=== PATIENT | female | born 1995 | race American Indian/Alaskan Native ===

== ENCOUNTER 2018-04-03 22:22 | Inpatient (IN) | payer MEDICAID ==
[2018-04-03] MEDS ORDERED: LACTATED RINGERS 1,000 ML IV ONE ×2 (22:33→23:25)
[2018-04-03 23:01] LABS: Bacteria,Urine 2+ /HPF (Negative); Bilirubin,Urine NEG (Negative); Blood,Urine SM (Negative); Color,Urine Amber (Yellow)
[2018-04-03 23:10] LABS: WBC,Urine > 182.0 /HPF (0.0-6.0)
[2018-04-03 23:16] LABS: Amphetamine Screen,Urine PRESUMPTIVE NEGATIVE; Benzodiazepines Screen,Urine PRESUMPTIVE NEGATIVE; Cannabinoid Screen,Urine PRESUMPTIVE NEGATIVE; Cocaine Screen,Urine PRESUMPTIVE NEGATIVE; Methadone Screen,Urine PRESUMPTIVE NEGATIVE; Opiate Screen,Urine PRESUMPTIVE NEGATIVE
[2018-04-03] MEDS ORDERED: TYLENOL PO PRN (23:45)
[2018-04-03] MEDS ORDERED: COLACE PO PRN (23:45)
[2018-04-03] MEDS ORDERED: DEEP SEA NS PRN (23:45)
[2018-04-03] MEDS ORDERED: BENADRYL PO PRN (23:45)
[2018-04-03] MEDS ORDERED: TYLENOL PO ONE (23:46)
[2018-04-04] LABS: Basophils % (Auto) 0.1 % (0.0-1.8); Hematocrit 29.6 % (30.3-42.9); Hemoglobin 9.6 gm/dl (10.1-14.3); Lymphocytes # (Auto) 0.7 K/mm3 (1.2-5.4); Mean Corpuscular HGB Conc 33 % (30-34); Mean Corpuscular Volume 74 fl (79-97); Monocytes # (Auto) 1.6 K/mm3 (0.0-0.8); Monocytes % (Auto) 11.8 % (0.0-7.3); Platelet Count 247 K/mm3 (140-440); Red Blood Count 3.97 M/mm3 (3.65-5.03); Red Cell Distribution Width 13.7 % (13.2-15.2)
[2018-04-04 00:04] LABS: Mean Corpuscular Hemoglobin 24 pg (28-32)
[2018-04-04 00:19] LABS: Alanine Aminotransferase 7 units/L (7-56); Albumin 3.2 g/dL (3.9-5); BUN/Creatinine Ratio 9; Blood Urea Nitrogen 9 mg/dL (7-17); Calcium 8.4 mg/dL (8.4-10.2); Hemolysis Index 13
--- NOTE | 2018-04-04 00:35 | XRay Report ---
FINAL REPORT EXAM: XR CHEST 1V AP HISTORY: 37wks, fever, cough COMPARISON: None available. FINDINGS: Frontal view(s) of the chest obtained. Heart borderline enlarged.. No gross consolidation or effusion. No pneumothorax. IMPRESSION: Heart borderline enlarged. Lungs are grossly clear.
[2018-04-04] MEDS: ROCEPHIN/NS 1 GM/50 ML 1 GM/50 ML BAG IV SCH (00:55)
--- NOTE | 2018-04-04 01:03 | Ultrasound Report ---
FINAL REPORT EXAM: US OB FOLLOW UP HISTORY: 37 wks, fever COMPARISON: None available. TECHNIQUE: Several real-time grayscale and color Doppler images were obtained. FINDINGS: Single live IUP. Estimated gestational age 35 weeks 3 days. Estimated delivery date May 06, 2018. heart rate 145 beats per minute. Estimated weight 2777 grams. BPD 8.8 centimeters 35 weeks 3 days. Head circumference 31.2 centimeters 35 weeks 0 days. Abdominal circumference 32.4 centimeters 36 weeks 2 days. Femoral length 6.9 centimeters 35 weeks 3 days. Normal CYNTHIA 10.5 centimeters. position cephalic. Placenta location anterior. No placenta previa. anatomic survey not performed. Limited evaluation of structures due to late gestational age. No gross abnormality demonstrated. IMPRESSION: Single live IUP. Estimated gestational age 35 weeks 3 days. Estimated delivery date May 06, 2018. No gross or placental abnormality demonstrated. Limited evaluation of structures due to late gestational age.
--- NOTE | 2018-04-04 01:06 | Ultrasound Report ---
FINAL REPORT EXAM: US OB BPP WO NON-STRESS HISTORY: 37 wks, fever COMPARISON: Ob ultrasound from today. FINDINGS: Normal breathing movements, movements, posterior tone and qualitative amniotic fluid volume. heart rate 145 beats per minute. IMPRESSION: Biophysical profile score 8/8.
[2018-04-04] MEDS: SUBLIMAZE IV PRN ×2 (02:03→04:27)
[2018-04-04] MEDS: LACTATED RINGERS 1,000 ML IV SCH ×3 (05:22→17:44)
[2018-04-04] MEDS: STADOL IV PRN ×2 (08:16→19:58)
[2018-04-04] MEDS ORDERED: PRENATAL VITAMIN PO SCH (10:00)
[2018-04-04] MEDS ORDERED: PERCOCET 5/325 PO PRN (11:50)
--- NOTE | 2018-04-04 15:16 | History and Physical Report ---
History of Present Illness Date of examination: 04/04/18 Date of admission: 04/04/18 00:40 Chief complaint: abdominal pain, lightheadeness, fever History of present illness: Pt is a 22 year old -[place]ammar[place] female primigravida JERED 04/18/18 at 38w0d who presents c/o two days of malaise, body aches, lower abdominal pain and lightheadedness. She also reports subjective fever at home as well as irregular contractions but denies vaginal bleeding or leakafe of fluid. Upon evaluation in triage, she was found to have a temperature of 102.5 and her urinalysis showed small blood, 2+ bacteria, large leukesterase and greater than 182 WBCs. She has had care with Dr Edouard with plans to deliver at [facility]. records are unavailable presently, but she denies any issues during the , apart from recently being treated for a yeast infection. Past History Past Medical History: no pertinent history Past Surgical History: no surgical history Social history: no significant social history - Obstetrical History Expected Date of Delivery: 04/18/18 Actual Gestation: 38 Week(s) 0 Day(s) : 1 Medications and Allergies Allergies Allergy/AdvReac Type Severity Reaction Status Date / Time No Known Allergies Allergy Verified 04/03/18 22:32 Active Meds: Active Medications Acetaminophen (Tylenol) 650 mg PO Q4H PRN PRN Reason: Pain MILD(1-3)/Fever >100.5/ARBOLEDA Butorphanol Tartrate (Stadol) 1 mg IV Q2H PRN PRN Reason: Labor Pain Last Admin: 04/04/18 08:16 Dose: 1 mg Diphenhydramine HCl (Benadryl) 25 mg PO Q6H PRN PRN Reason: Itching Docusate Sodium (Colace) 100 mg PO Q12H PRN PRN Reason: Constipation Guaifenesin (Guaifenesin Dm Syrup) 10 ml PO Q6H PRN PRN Reason: Cough Lactated Ringer's (Lactated Ringers) 1,000 mls @ 125 mls/hr IV DIRECT JOSELUIS Last Admin: 04/04/18 08:22 Dose: 125 mls/hr Ceftriaxone Sodium (Rocephin/Ns 1 Gm/50 Ml) 1 gm in 50 mls @ 100 mls/hr IV Q24HR JOSELUIS; Protocol Last Admin: 04/04/18 00:55 Dose: 100 mls/hr Multivitamins/Iron/Calcium ( Vitamin) 1 each PO QDAY JOSELUIS Last Admin: 04/04/18 10:48 Dose: 1 each Oxycodone/Acetaminophen (Percocet 5/325) 2 tab PO Q4H PRN PRN Reason: Pain, Moderate (4-6) Sodium Chloride (Deep Sea) 2 spray NS Q4H PRN PRN Reason: Congestion Review of Systems All systems: negative - Vital Signs Vital signs: Vital Signs Pulse BP 108 H 136/71 04/03/18 22:38 04/03/18 22:38 Temp Pulse Resp BP Pulse Ox 98.3 F 117 H 18 120/63 98 04/04/18 12:00 04/04/18 15:13 04/04/18 12:00 04/04/18 12:01 04/04/18 15:13 - Physical Exam Breasts: Positive: deferred Cardiovascular: Regular rate Lungs: Positive: Clear to auscultation Abdomen: Positive: soft (gravid ) Uterus: Positive: enlarged (gravid ) Extremities: Positive: normal - Obstetrical FHR: category 2 Uterine Contraction Monitor Mode: External Uterine Contraction Pattern: Irregular Uterine Tone Measurement Phase: Resting Uterine Contraction Intensity: Moderate Results Result Diagrams: 04/03/18 22:52 04/03/18 22:52 Abnormal lab results 04/03/18 04/03/18 04/03/18 Range/Units 22:35 22:52 22:52 WBC 13.9 H (4.5-11.0) K/mm3 Hgb 9.6 L (10.1-14.3) gm/dl Hct 29.6 L (30.3-42.9) % MCV 74 L (79-97) fl MCH 24 L (28-32) pg Lymph % (Auto) 5.0 L (13.4-35.0) % [place] % (Auto) 11.8 H (0.0-7.3) % Lymph # 0.7 L (1.2-5.4) K/mm3 [place] # 1.6 H (0.0-0.8) K/mm3 Seg Neutrophils % 83.1 H (40.0-70.0) % Seg Neutrophils # 11.5 H (1.8-7.7) K/mm3 Sodium 129 L (137-145) mmol/L Potassium 3.4 L (3.6-5.0) mmol/L Chloride 93.6 L (98-107) mmol/L Carbon Dioxide 16 L (22-30) mmol/L Glucose 103 H (65-100) mg/dL Alkaline Phosphatase 280 H (35-129) units/L Albumin 3.2 L (3.9-5) g/dL Urine WBC (Auto) > 182.0 H (0.0-6.0) /HPF All other labs normal. Assessment and Plan A: IUP at 38w0d Suspected Pyelonephritis Multiple Electolyte abnormalities Anemia P: Admit to antepartum service IV hydration Urinalysis, Urine culture IV Rocephin OB ultrasound with BPP Chest X-Ray Closely monitor clinical status
[2018-04-04] MEDS ORDERED: AMBIEN PO PRN (20:07)
[2018-04-05] MEDS: ROCEPHIN/NS 1 GM/50 ML 1 GM/50 ML BAG IV SCH (01:07)
[2018-04-05] MEDS: LACTATED RINGERS 1,000 ML IV SCH (01:11)
[2018-04-05] MEDS ORDERED: BRETHINE IVP PRN (02:24)
[2018-04-05] MEDS ORDERED: STADOL IV PRN (02:24)
[2018-04-05] MEDS ORDERED: XYLOCAINE 2% INFILTRATI ONE ×2 (02:24→06:31)
[2018-04-05] MEDS ORDERED: NARCAN 0.4 MG/1 ML IV PRN (02:24)
[2018-04-05] MEDS ORDERED: BRETHINE SUB-Q PRN (02:24)
[2018-04-05] MEDS ORDERED: SUBLIMAZE IV PRN (02:24)
[2018-04-05] MEDS ORDERED: POLYCILLIN/NS 2 GM/100 ML 2 GM/100 ML BAG IV ONE (02:24)
[2018-04-05] MEDS ORDERED: MINERAL OIL PO PRN (02:24)
[2018-04-05] MEDS ORDERED: ZOFRAN IV PRN ×2 (02:24→10:41)
--- NOTE | 2018-04-05 02:24 | Event Note ---
Date: 04/05/18 On-call MD notified that patient has spontaneously ruptured at 113 am. Clear fluid. Cervix /2. Begin GBS prophylaxis and routine labor orders.
[2018-04-05] MEDS ORDERED: LACTATED RINGERS 1,000 ML IV SCH (03:00)
[2018-04-05] MEDS ORDERED: PITOCin/NS 20 UNIT/1000ML DRIP 20 UNITS/1,000 ML BAG IV SCH ×2 (03:00→10:41)
[2018-04-05] MEDS ORDERED: PITOCin/NS 30 UNIT/500ML 30 UNITS/500 ML BAG IV SCH (03:00)
[2018-04-05 04:54] LABS: Basophils % (Auto) 0.1 % (0.0-1.8); Hematocrit 30.5 % (30.3-42.9); Hemoglobin 9.8 gm/dl (10.1-14.3); Lymphocytes # (Auto) 0.6 K/mm3 (1.2-5.4); Lymphocytes % (Auto) 4.3 % (13.4-35.0); Mean Corpuscular HGB Conc 32 % (30-34); Mean Corpuscular Volume 75 fl (79-97); Monocytes # (Auto) 1.1 K/mm3 (0.0-0.8); Monocytes % (Auto) 7.1 % (0.0-7.3); Platelet Count 258 K/mm3 (140-440); Red Blood Count 4.06 M/mm3 (3.65-5.03); Red Cell Distribution Width 14.1 % (13.2-15.2)
[2018-04-05 04:59] LABS: Mean Corpuscular Hemoglobin 24 pg (28-32)
[2018-04-05 05:14] LABS: BUN/Creatinine Ratio 13; Blood Urea Nitrogen 8 mg/dL (7-17); Calcium 8.7 mg/dL (8.4-10.2); Hemolysis Index 31
[2018-04-05] MEDS ORDERED: AMPICILLIN/NS 1 GM/50 ML 1 GM/50 ML BAG IV SCH (06:26)
--- NOTE | 2018-04-05 06:49 | Procedure Note ---
OB Delivery Note - Delivery Date of Delivery: 04/05/18 Surgeon: OMAR PAYAN Estimated blood loss: 300cc - Vaginal Delivery presentation: vertex Delivery position: OA Delivery induction: none Delivery augmentation: pitocin Delivery monitor: external FHT, external uterine Route of delivery: vacuum extraction Indicators for instrumentation: nonreassuring FHR tracing Delivery placenta: spontaneous Delivery cord: 3 umbilical vessels Episiotomy: none Delivery laceration: 1st degree, other (bilateral periurethral ) Delivery repair: vicryl Anesthesia: local, intravenous Delivery comments: Pt progressed to complete/complete/+3 and pushed to deliver a viable female over intact perineum via VAVD under IV anesthesia. Head noted to be in OSCAR position and visible at the introitus between contractions. Kiwi vacuum placed and head delivered with one pull no pop offs. Shoulders and body delivered easily. Cord clamped and cut and handed to NICU staff in attendance. Cord blood collected. Placenta delivered spontaneously (3VC, intact). Vagina and perineum explored. First degree perineal laceration repaired with 3-0 Vicryl in a running locked fashion. Bilateral periurethral lacerations noted. Left periurethral laceration repaired with a figure of eight of 3-0 Vicryl. EBL 300 mL. - Infant A at 1 minute: 8 at 5 minutes: 9 Infant Gender: Female (2597g (5lb 12 oz) @ 0621 am)
[2018-04-05] MEDS ORDERED: NORCO 5/325 PO PRN (10:41)
[2018-04-05] MEDS ORDERED: BENADRYL PO PRN (10:41)
[2018-04-05] MEDS ORDERED: PHENERGAN PO PRN (10:41)
[2018-04-05] MEDS ORDERED: SODIUM CHLORIDE FLUSH SYRINGE 10 ML IV NR (10:41)
[2018-04-05] MEDS ORDERED: DULCOLAX PR PRN (10:41)
[2018-04-05] MEDS ORDERED: LANSINOH TP PRN ×2 (10:41)
[2018-04-05] MEDS ORDERED: TUCKS PAD TP PRN (10:41)
[2018-04-05] MEDS ORDERED: MILK OF MAGNESIA PO PRN (10:41)
[2018-04-05] MEDS ORDERED: PHENERGAN PR PRN (10:41)
[2018-04-05] MEDS ORDERED: DERMOPLAST TP PRN (10:41)
[2018-04-05] MEDS ORDERED: TYLENOL PO PRN (10:41)
[2018-04-05] MEDS: FEOSOL PO SCH ×2 (13:00→23:37)
[2018-04-05] MEDS: MOTRIN PO SCH ×2 (13:00→23:31)
--- NOTE | 2018-04-05 16:08 | Event Note ---
Date: 04/05/18 Patient lying in bed sleep, comfortable s/p tachy on admission IV abx ( rpocephin for ) pyelo/uti will continue rocephin called ID for consult IV hydration of 1 L D5rl
[2018-04-05] MEDS ORDERED: D5LR 1,000 ML IV ONE ×2 (16:14→16:15)
[2018-04-05 19:03] LABS: Hematocrit 30.1 % (30.3-42.9); Hemoglobin 9.6 gm/dl (10.1-14.3)
[2018-04-06] MEDS ORDERED: ROCEPHIN/NS 1 GM/50 ML 1 GM/50 ML BAG IV ONE ×2 (01:30→02:00)
[2018-04-06] MEDS: MOTRIN PO SCH ×4 (05:08→23:10)
[2018-04-06] MEDS ORDERED: BOOSTRIX IM ONE (06:00)
[2018-04-06] MEDS ORDERED: M-M-R II VACCINE SUB-Q ONE (06:00)
[2018-04-06] MEDS: FEOSOL PO SCH ×2 (13:00→21:30)
--- NOTE | 2018-04-06 13:18 | Progress Note ---
Assessment and Plan - Patient Problems (1) Pyelonephritis affecting Current Visit: Yes Status: Acute Plan to address problem: patient reports improvement in symptoms consider discharge home tomorrow if remains afebrile Subjective - Subjective Date of service: 04/06/18 Principal diagnosis: pyelonephritis Patient reports: appetite normal, voiding normally, pain well controlled [place]: doing well Objective - Vital Signs Latest vital signs: Vital Signs Temp Pulse Resp BP Pulse Ox 04/06/18 07:40 97.5 F L 70 18 103/51 04/06/18 01:30 97.6 F 65 18 122/72 100 04/05/18 16:05 98.2 F 87 18 121/80 Intake and Output 04/05/18 04/06/18 04/06/18 22:59 06:59 14:59 Intake Total 600 360 360 Output Total 400 Balance 200 360 360 Intake: Oral 360 360 360 Intake, Free Water 240 Output: Urine 400 Void 400 Other: Total, Intake Amount 120 240 120 Total, Output Amount 400 # Voids Void 3 1 1 - Exam Abdomen: Present: normal appearance, soft Uterus: Present: normal, firm - Labs Labs: Abnormal lab results 04/05/18 Range/Units 18:24 Hgb 9.6 L (10.1-14.3) gm/dl Hct 30.1 L (30.3-42.9) %
--- NOTE | 2018-04-06 15:51 | Consultation ---
History of Present Illness - Reason for Consult Consult date: 04/06/18 delivery/pyelo Requesting physician: ELVER HOFF - History of Present Illness 22 y/o female primigravida admitted on 04/03/18 with 38 weeks due to two days of malaise, body aches, lower abdominal pain and lightheadedness. She also reports subjective fever at home as well as irregular contractions but denies vaginal bleeding or leakage of fluid. Reports a recent vaginal yeast infection treated with topical ovules. Denies previous UTIs or kidney stones. Reports a week history of frequency. records are unavailable. In the ED, temp 102.5, HR 108, R 24, BP 136/71, O2 sat 98. WBC 13.8. Hg 9.6. Plat 247. Creat 1.1. UA showed wbc 182, large LE. UDS neg. HIV neg. RPR neg. Upon evaluation in triage, she was found to have a temperature of 102.5 and her urinalysis showed small blood, 2+ bacteria, large leukesterase and greater than 182 WBCs. Microbiology: Blood cultures: Urine cultures: 04/03 GNR >100K Current Antimicrobials: Ceftriaxone Previous Antimicrobials: Past History Social history: no significant social history Medications and Allergies Allergies Allergy/AdvReac Type Severity Reaction Status Date / Time No Known Allergies Allergy Verified 04/03/18 22:32 Home Medications Medication Instructions Recorded Confirmed Last Taken Type Pnv,Calcium 72/Iron/Folic Acid 1 tab PO QDAY 04/05/18 04/05/18 04/03/18 History [Pnv Plus Multivit Tab] Active Meds: Active Medications Acetaminophen (Tylenol) 650 mg PO Q4H PRN PRN Reason: Pain MILD(1-3)/Fever >100.5/ARBOLEDA Acetaminophen/Hydrocodone Bitart (Zoar 5/325) 2 each PO Q6H PRN PRN Reason: Pain, Moderate (4-6) Last Admin: 04/05/18 23:31 Dose: 2 each Benzocaine/Menthol (Dermoplast) 1 spray TP PRN PRN PRN Reason: Pain, Mild (1-3) Last Admin: 04/05/18 23:32 Dose: 1 spray Bisacodyl (Dulcolax) 10 mg [place] BID PRN PRN Reason: Constipation Diphenhydramine HCl (Benadryl) 25 mg PO Q6H PRN PRN Reason: Itching Ferrous Sulfate (Feosol) 325 mg PO BID JOSELUIS Last Admin: 04/06/18 13:00 Dose: 325 mg Oxytocin/Sodium Chloride (Pitocin/Ns 20 Unit/1000ml Drip) 20 units in 1,000 mls @ 250 mls/hr IV DIRECT JOSELUIS Ceftriaxone Sodium (Rocephin/Ns 1 Gm/50 Ml) 1 gm in 50 mls @ 100 mls/hr IV Q24H JOSELUIS; Protocol Ibuprofen (Motrin) 600 mg PO Q6H JOSELUIS Last Admin: 04/06/18 13:00 Dose: 600 mg Magnesium Hydroxide (Milk Of Magnesia) 30 ml PO HS PRN PRN Reason: Constipation Multi-Ingredient Ointment (Lansinoh) 1 applic TP PRN PRN PRN Reason: Sore Nipples Last Admin: 04/05/18 13:00 Dose: 1 applic Naloxone HCl (Narcan 0.4 Mg/1 Ml) 0.1 mg IV Q2MIN PRN PRN Reason: Res Rate </= 8 or 02 SAT < 92% Ondansetron HCl (Zofran) 4 mg IV Q8H PRN PRN Reason: Nausea And Vomiting Promethazine HCl (Phenergan) 25 mg [place] Q6H PRN PRN Reason: Nausea And Vomiting Promethazine HCl (Phenergan) 25 mg PO Q6H PRN PRN Reason: Nausea And Vomiting Sodium Chloride (Deep Sea) 2 spray NS Q4H PRN PRN Reason: Congestion Witch Cande/Glycerin (Tucks Pad) 1 each TP PRN PRN PRN Reason: Hemorrhoid/cleansing/soothing Last Admin: 04/05/18 23:37 Dose: 1 each Review of Systems All systems: negative (as per HPI rest neg) Physical Examination - Physical Exam Narrative exam: General appearance: Alert in NAD, conversant Eyes: anicteric sclerae, moist conjunctivae; no lid-lag; PERRLA HENT: Atraumatic; oropharynx clear with moist mucous membranes and no mucosal ulcerations/no oral thrush; normal hard and soft palate. Normal external ears. Neck: Trachea midline; supple, no thyromegaly or lymphadenopathy Lungs: CTA, with normal respiratory effort and no intercostal retractions CV: RRR, no murmurs Abdomen: Soft, non-tender; enlarged uterus Extremities: No peripheral edema or extremity lymphadenopathy Skin: Normal temperature, turgor and texture; no rash, ulcers or subcutaneous nodules Psych: Appropriate affect, alert and oriented to person, place and time. Neuro: alert and oriented x 3. Moving all extermities Lines: No CVL / PICC - Constitutional Vitals: Vital Signs Temp Pulse Resp BP Pulse Ox 97.5 F L 70 18 103/51 100 04/06/18 07:40 04/06/18 07:40 04/06/18 07:40 04/06/18 07:40 04/06/18 01:30 Temperature -Last 24 Hours Temperature 97.5 F Temperature 97.6 F Temperature 98.2 F Results - Labs CBC & Chem 7: 04/05/18 18:24 04/05/18 04:43 Labs: Abnormal lab results 04/05/18 Range/Units 18:24 Hgb 9.6 L (10.1-14.3) gm/dl Hct 30.1 L (30.3-42.9) % Assessment and Plan Assessment: 1) Sepsis: Present on admission, manifested by fever, tachycardia, hypotension, leukocytosis, bandemia, increased lactate. Etiology most likely UTI. 2) UTI: UA showed wbc 182, large LE. 9/8 Urine cx GNR >100K 3) Term s/p vaginal delivery 4) Recent vaginal yeast infection 5) Anemia Plan: -follow-up urine culture -continue ceftriaxone IV -upon discharge will do PO abx Thank you for your consultation, will follow up with you. Chyna Floyd MD Infectious Diseases Specialist [facility] M [phone] O [phone]
[2018-04-07] MEDS ORDERED: ROCEPHIN/NS 1 GM/50 ML 1 GM/50 ML BAG IV SCH
[2018-04-07] MEDS: MOTRIN PO SCH (05:17)
--- NOTE | 2018-04-07 08:11 | Progress Note ---
Assessment and Plan A: PPD#2 s/p at term; initially admitted for pyelonephritis at term P: Routine care. Await sensitivities which should be released today. Possible discharge this afternoon. Subjective - Subjective Date of service: 04/07/18 Principal diagnosis: pyelonephritis, s/p at term Interval history: No overnight events. Pt feeling much better than on admission. Patient reports: appetite normal, voiding normally, pain well controlled, ambulating normally [place]: doing well, bottle feeding Objective - Vital Signs Latest vital signs: Vital Signs Temp Pulse Resp BP 04/07/18 00:00 98.1 F 62 20 128/63 04/06/18 15:35 98 F 75 20 113/55 Intake and Output 04/06/18 04/07/18 04/07/18 22:59 06:59 14:59 Intake Total 240 120 Balance 240 120 Intake: Oral 240 120 Other: Total, Intake Amount 240 120 # Voids Void 1 1 - Exam Breasts: Present: deferred Cardiovascular: Present: Regular rate Lungs: Present: Clear to auscultation Abdomen: Present: soft Uterus: Present: fundal height below umbilicus Extremities: Present: edema (trace)
[2018-04-07 08:34] LABS: Basophils % (Auto) 0.5 % (0.0-1.8); Eosinophils # (Auto) 0.1 K/mm3 (0.0-0.4); Eosinophils % (Auto) 0.9 % (0.0-4.3); Hematocrit 25.5 % (30.3-42.9); Hemoglobin 8.3 gm/dl (10.1-14.3); Lymphocytes # (Auto) 1.3 K/mm3 (1.2-5.4); Lymphocytes % (Auto) 19.3 % (13.4-35.0); Mean Corpuscular HGB Conc 33 % (30-34); Mean Corpuscular Volume 74 fl (79-97); Monocytes # (Auto) 0.8 K/mm3 (0.0-0.8); Monocytes % (Auto) 11.1 % (0.0-7.3); Platelet Count 262 K/mm3 (140-440); Red Blood Count 3.43 M/mm3 (3.65-5.03); Red Cell Distribution Width 14.2 % (13.2-15.2)
[2018-04-07 08:36] LABS: Mean Corpuscular Hemoglobin 24 pg (28-32)
--- NOTE | 2018-04-07 08:47 | Discharge Summary ---
Providers - Providers Date of Admission: 04/04/18 00:40 Date of discharge: 04/07/18 Attending physician: OMAR PAYAN 04/05/18 10:41 Consult to Wine Sales Representative [CONS] Routine Reason For Exam: assistance with , OLGA 04/05/18 16:06 Consult to Physician [CONS] Urgent Comment: Consulting Provider: CARMEN STRATTON Physician Instructions: Reason For Exam: s/p pyelo Primary care physician: HOOD MAKER Hospitalization Reason for admission: other (Pyelonephritis ) Delivery: Procedure details: Please see delivery note. Episiotomy: none Laceration: 1st degree, other (periurethral ) Other procedures: none complications: none Discharge diagnosis: IUP at term delivered baby: female Hospital course: Pt was admitted with pyelonephritis and started on IV antibiotics. During her hospitalization, she experienced spontaneous rupture of membranes and labor and she ultimately delivered a viable female via . Her IV antibiotics were continued until she remained afebrile for over 48 hrs and her white count normalized. Her care was uncomplicated and she met discharge criteria on PPD#2. She will follow up in the office in 2 weeks. Condition at discharge: Stable Disposition: DC-01 TO HOME OR SELFCARE - Discharge Diagnoses (1) Term of female Status: Acute (2) Status: Acute Qualifiers: Weeks of gestation: 38 weeks Qualified Code(s): Z3A.38 - 38 weeks gestation of (3) Pyelonephritis affecting Status: Acute Qualifiers: Trimester: third trimester Qualified Code(s): O23.03 - Infections of kidney in , third trimester (4) Anemia Status: Acute Qualifiers: Anemia type: unspecified type Qualified Code(s): D64.9 - Anemia, unspecified Plan - Discharge Medications Prescriptions: cefUROXime [Ceftin] 250 mg PO Q12H #28 tablet HYDROcodone/APAP 5-325 [[place] 5/325] 1 each PO Q6HR PRN #20 tablet PRN Reason: Pain Ibuprofen [Motrin] 800 mg PO Q8HR PRN #30 tablet PRN Reason: Pain, Moderate (4-6) - Provider Discharge Summary Activity: routine, no sex for 6 weeks, no heavy lifting 4 weeks, no strenuous exercise Diet: routine Instructions: routine Additional instructions: [] Smoking cessation referral if applicable(refer to patient education folder for contact #) [] Refer to [facility] Booklet Call your doctor immediately for: * Fever > 100.5 * Heavy vaginal bleeding ( >1 pad per hour) * Severe persistent headache * Shortness of breath * Reddened, hot, painful area to leg or breast * Drainage or odor from incision. * Keep incision clean and dry at all times and follow doctor's instructions regarding bathing/showering PLEASE CALL THE DOCTOR IF YOU ARE NOT ABLE TO PARISH WORKER YOUR ANTIBIOTICS - Follow up plan Follow up: PRIMARY MD JULIAN [Primary Care Provider] - 7 Days OMAR PAYAN MD [Staff Physician] - 04/19/18 (Please call to schedule appt )
[2018-04-07] MEDS: FEOSOL PO SCH (10:34)
--- NOTE | 2018-04-07 10:45 | Progress Note ---
Assessment and Plan Assessment: 1) Sepsis: resolved. Etiology most likely UTI. 2) UTI: UA showed wbc 182, large LE. 04/03 Urine cx MDR E coli>100K 3) Term s/p vaginal delivery 4) Recent vaginal yeast infection 5) Anemia Plan: -renal US to r/o hydro/stones -continue ceftriaxone IV -upon discharge will ceftin 500 mg po BID total 10 days until 04/13 if renal US neg I am signing off Thank you for your consultation, will follow up with you. Chyna Floyd MD Infectious Diseases Specialist [facility] M [phone] O [phone] Subjective Date of service: 04/07/18 Principal diagnosis: pyelonephritis, s/p at term Interval history: Feels better, no fever. wants to go home. Microbiology: Blood cultures: Urine cultures: 04/03 E coli MDR >100K Current Antimicrobials: Ceftriaxone Previous Antimicrobials: Objective - Exam Narrative Exam: General appearance: Alert in NAD, conversant Eyes: anicteric sclerae, moist conjunctivae; no lid-lag; PERRLA HENT: Atraumatic; oropharynx clear with moist mucous membranes and no mucosal ulcerations/no oral thrush; normal hard and soft palate. Normal external ears. Neck: Trachea midline; supple, no thyromegaly or lymphadenopathy Lungs: CTA, with normal respiratory effort and no intercostal retractions CV: RRR, no murmurs Abdomen: Soft, non-tender; enlarged uterus Extremities: No peripheral edema or extremity lymphadenopathy Skin: Normal temperature, turgor and texture; no rash, ulcers or subcutaneous nodules Psych: Appropriate affect, alert and oriented to person, place and time. Neuro: alert and oriented x 3. Moving all extermities Lines: No CVL / PICC - Constitutional Vitals: Vital Signs Temp Pulse Resp BP Pulse Ox 97.9 F 87 20 119/78 100 04/07/18 07:33 04/07/18 07:33 04/07/18 07:33 04/07/18 07:33 04/07/18 07:33 Temperature -Last 24 Hours Temperature 97.9 F Temperature 98.1 F Temperature 98 F - Labs CBC & Chem 7: 04/07/18 07:54 04/05/18 04:43 Labs: Abnormal lab results 04/07/18 Range/Units 07:54 RBC 3.43 L (3.65-5.03) M/mm3 Hgb 8.3 L (10.1-14.3) gm/dl Hct 25.5 L (30.3-42.9) % MCV 74 L (79-97) fl MCH 24 L (28-32) pg [place] % (Auto) 11.1 H (0.0-7.3) %
--- NOTE | 2018-04-07 15:03 | Ultrasound Report ---
ULTRASOUND RENAL BILATERAL HISTORY: Evaluate for stones, hydronephrosis. TECHNIQUE: transabdominal ultrasound with color Doppler interrogation. COMPARISON: none. FINDINGS: The kidneys are normal size, contour and position. There is increased renal cortical echotexture bilaterally consistent with nonspecific renal parenchymal disease. Corticomedullary differentiation is preserved. 1.3 cm simple cyst is noted at the superior pole of the left kidney. No evidence for mass, nephrolithiasis, hydronephrosis or perinephric fluid. The views of the bladder and the region of the ureters appear normal. IMPRESSION: Renal parenchymal disease.
[2018-04-08 00:02] VITALS: BP 103/60
== END 2018-04-07 19:30 | disposition home or self-care (01) | DRG 774 ==
LOC: TRG 22:22 → OBSVTOIN 04-04 00:40 → TRG 04-04 00:40 → LD 04-04 00:40 → OB 04-05 08:51
PROVIDERS: ADMIT Obstetrics & Gynecology; ATTEND Obstetrics & Gynecology
PROC: 0UQMXZZ Repair Vulva, External Approach (ICD-10-PCS; principal; 2018-04-05)
PROC: 10D07Z6 Extraction of Products of Conception, Vacuum, Via Natural or Artificial Opening (ICD-10-PCS; 2018-04-05)
PROC: 0HQ9XZZ Repair Perineum Skin, External Approach (ICD-10-PCS; 2018-04-05)
PROC: 3E0234Z Introduction of Serum, Toxoid and Vaccine into Muscle, Percutaneous Approach (ICD-10-PCS; 2018-04-06)
DX: O75.3 Other infection during labor (principal); Z37.0 Single live birth; Z3A.38 38 weeks gestation of pregnancy; O70.0 First degree perineal laceration during delivery; O71.82 Other specified trauma to perineum and vulva; N12 Tubulo-interstitial nephritis, not specified as acute or chronic; O99.02 Anemia complicating childbirth; D64.9 Anemia, unspecified; A41.9 Sepsis, unspecified organism; O76 Abnormality in fetal heart rate and rhythm complicating labor and delivery; Z23 Encounter for immunization
CPT/HCPCS: 36415; 71045; 76770; 76816; 76819; 80048; 80053; 80307; 81001; 82962; 85014; 85018; 85025; 86592; 86706; 86762; 86850; 86900; 86901; 87076; 87086; 87186; 87806; 88305; 88307; 90471; 90715; 99211; A6250; G0463; J0290; J0595; J0696; J2590; J3010; J7120; J7121

== ENCOUNTER 2021-01-22 16:01 | Emergency (ER) | payer MEDICAID ==
--- NOTE | 2021-01-22 17:14 | Emergency Department Report ---
Stated Complaint: TEST Time Seen by Provider: 01/22/21 17:12 - HPI History of Present Illness: Patient presents for confirmation of , she has no other complaints. She states that she took an at home test and states it was positive. She denies any abdominal pain or vaginal bleeding. She states that she just needs a confirmation of . Vitals written in triage are normal On exam: Non toxic appearing, no acute distress atraumatic, normocephalic normal appearance of the eyes EOMI, no periorbital edema or ecchymosis moist mucus membranes Respiratory distress, no accessory muscle use A&O x4, normal gait Patient is presenting for confirmation of She has no complaints at this time Patient given information to resource clinic and CASH ROOM CLERK Discussed the importance of follow-up Discussed return precautions Medical screening examination performed and there is no threat to life or limb at this time MSE screening note: Focused history and physical exam performed. Due to findings the following was ordered: ED Disposition for MSE Clinical Impression: Encounter for medical screening examination Disposition: DC- TO HOME OR SELFCARE Is pt being admited?: No Does the pt Need Aspirin: No Condition: Stable Additional Instructions: Please follow-up with a clinic or CASH ROOM CLERK for confirmation of . Return to emergency room for any new or worsening symptoms including but not limited to vaginal bleeding or severe abdominal pain. [facility] care center in [place], [place] COVID-19 info: [email or web address] Address: [address] [place] [address] [address], [place] [address] Care Center administrative services coordinator organization in [place], [place] Address: [address] [place] [address] Referrals: [facility] [Provider Group] - 2-3 Days Time of Disposition: 17:12 Print Language: BOLIVIAN
== END 2021-01-22 17:28 | disposition home or self-care (01) ==
LOC: ED 16:01
DX: Z00.00 Encounter for general adult medical examination without abnormal findings (principal)
CPT/HCPCS: 99281